=== PATIENT | female | born 1965 | race Caucasian/White ===

== ENCOUNTER 2018-06-18 17:13 | Observation (INO) ==
[2018-06-19 00:52] VITALS: RESP 20
--- NOTE | 2018-06-19 01:14 | XR ---
EXAM DATE: 06/19/2018 12:41 AM EST AGE/SEX: 52 years / Female INDICATIONS: Short of breath, actue chest pain. CLINICAL DATA: This is the patient's initial encounter. Patient reports that signs and symptoms have been present for 1 day and indicates a pain score of 0/10. MEDICAL/SURGICAL HISTORY: None. None. COMPARISON: No prior exams available for comparison. FINDINGS: A single AP view of the chest demonstrates the lungs to be symmetrically aerated without evidence of mass, infiltrate or effusion. The cardiomediastinal contours are unremarkable. Osseous structures a re intact. CONCLUSION: No acute cardiopulmonary disease Electronically signed by: Gab Dewitt MD Board Certified Radiologist 06/19/2018 1:12 AM EST
[2018-06-19] MEDS ORDERED: Aspirin 325 MG Tablet PO SCH (09:00)
--- NOTE | 2018-06-19 10:42 | P.HP ---
History of Present Illness Service: [facility] hospitalist Primary Care Physician: Les Ruelas Chief Complaint: 1-2 months left sided chest pain numbness left arm and legs History of Present Illness: This is a 52-year-old female who presents for chest pain. She states that overnight, she developed anterior chest pressure. At times it radiates to the left arm. She complains of paresthesias on the lateral aspect of the left arm when she has the pain. She also complains of intermittent paresthesias on the right leg. No weakness or numbness. No headache, neck pain or stiffness. The chest pain is pressure-like in nature. Onset gradual. No prior prior treatment. No alleviating or aggravating factors. No associated diaphoresis. She has been otherwise well recently without fevers, chills, cough, congestion, vomiting, diarrhea. No abdominal pain. No lower extremity edema, calf pain, immobility.Patient states has had this type of pain for about 1-2 months . On no medications and no other symptoms. - Diagnosis (1) Chest pain Review of Systems All other systems reviewed negative except as stated in HPI PMFSH - History History Provided By: Patient - Medical History Medical History: Medical History (Last Reviewed 06/19/18 @ 10:40 by Luis Alexandre MD) Hx of hysterectomy Hypothyroid - Surgical History Surgical History: Surgical History (Last Reviewed 06/19/18 @ 10:40 by Luis Alexandre MD) History of parathyroid surgery Hx of tubal ligation - Tobacco History Second Hand Smoke Exposure: No Smoking Status: Former smoker - Alcohol History How Often Do You Have a Drink Containing Alcohol: 2 to 4 times a month - Substance Use History Substance History: No History of Abuse Medications and Allergies Active Medications: Active Medications Aspirin (Aspirin) 325 mg PO DAILY [facility] Last Admin: 06/19/18 08:25 Dose: 325 mg Nitroglycerin (Nitro-Bid 2% Oint) 0.5 inch TOPICAL Q8H PRN PRN Reason: NEEDED FOR CHEST PAIN Allergies Allergy/AdvReac Type Severity Reaction Status Date / Time acetaminophen [From Percocet] Allergy Hallucinati Verified 06/18/18 17:22 ons oxycodone [From Percocet] Allergy Hallucinati Verified 06/18/18 17:22 ons Exam Vital signs: Vital Signs 06/19/18 00:00 06/19/18 03:59 06/19/18 08:00 Temperature 97.1 F L 97.5 F L 97.4 F L Pulse Rate 76 60 63 Respiratory Rate 20 20 20 Blood Pressure 112/62 118/80 111/70 Pulse Oximetry 94 L 99 98 06/19/18 09:00 Temperature Pulse Rate 82 Respiratory Rate Blood Pressure Pulse Oximetry Intake & Output 06/18/18 06/19/18 06/19/18 18:59 06:59 18:59 Weight 102.5 kg Other: # Voids 3 Weight On Admission 102.5 kg Narrative: GENERAL: SKIN: Warm and dry. HEAD: Normocephalic. EYES: No scleral icterus. No injection or drainage. NECK: Supple, trachea midline. No JVD or lymphadenopathy. CARDIOVASCULAR: Regular rate and rhythm without murmurs, gallops, or rubs. RESPIRATORY: Breath sounds equal bilaterally. No accessory muscle use. GASTROINTESTINAL: Abdomen soft, non-tender, nondistended. MUSCULOSKELETAL: No cyanosis, or edema. BACK: Nontender without obvious deformity. No CVA tenderness. Results - Labs Labs: Laboratory Results - last 24 hr 06/19/18 00:15 Troponin I Less than 0.02 L - Imaging Impressions Chest X-Ray 06/19/18 00:00 CONCLUSION: No acute cardiopulmonary disease Caprini VTE Risk Assessment Caprini VTE Risk Assessment: No/Low Risk (score <= 1) Caprini Risk Assessment Model: Point Value = 1 Point Value = 2 Point Value = 3 Point Value = 5 Age 41-60 Minor surgery BMI > 25 kg/m2 Swollen legs Varicose veins or History of unexplained or recurrent spontaneous Oral contraceptives or hormone replacement Sepsis (< 1 month) Serious lung disease, including pneumonia (< 1 month) Abnormal pulmonary function Acute myocardial infarction Congestive heart failure (< 1 month) History of inflammatory bowel disease Medical patient at bed rest Age 61-74 Arthroscopic surgery Major open surgery (> 45 min) Laparoscopic surgery (> 45 min) Malignancy Confined to bed (> 72 hours) Immobilizing plaster cast Central venous access Age >= 75 History of VTE Family history of VTE Factor V Leiden Prothrombin [id number] Lupus anticoagulant Anticardiolipin antibodies Elevated serum homocysteine Heparin-induced thrombocytopenia Other congenital or acquired thrombophilia Stroke (< 1 month) Elective arthroplasty Hip, pelvis, or leg fracture Acute spinal cord injury (< 1 month) Prophylaxis Regimen: Total Risk Factor Score Risk Level Prophylaxis Regimen 0-1 Low Early ambulation 2 Moderate Order ONE of the following: *Sequential Compression Device (SCD) *Heparin 5000 units SQ BID 3-4 Higher Order ONE of the following medications: *Heparin 5000 units SQ TID *Enoxaparin/Lovenox 40 mg SQ daily (WT < 150 kg, CrCl > 30 mL/min) *Enoxaparin/Lovenox 30 mg SQ daily (WT < 150 kg, CrCl > 10-29 mL/min) *Enoxaparin/Lovenox 30 mg SQ BID (WT < 150 kg, CrCl > 30 mL/min) AND/OR *Sequential Compression Device (SCD) 5 or more Highest Order ONE of the following medications: *Heparin 5000 units SQ TID (Preferred with Epidurals) *Enoxaparin/Lovenox 40 mg SQ daily (WT < 150 kg, CrCl > 30 mL/min) *Enoxaparin/Lovenox 30 mg SQ daily (WT < 150 kg, CrCl > 10-29 mL/min) *Enoxaparin/Lovenox 30 mg SQ BID (WT < 150 kg, CrCl > 30 mL/min) AND *Sequential Compression Device (SCD) Assessment and Plan - Assessment (1) Chest pain Code(s): R07.9 - Chest pain, unspecified Status: Acute Plan: will admit chest pain protocol ekg and enzymes nuclear stress test ntg paste - Plan further plan pending results tests ekg and enzymes negative so far Code Status: full Discussed Condition With: patient
[2018-06-19] MEDS ORDERED: Regadenoson Inj 0.4 MG/5 ML Syringe IV.PUSH ONE (11:24)
--- NOTE | 2018-06-19 13:18 | NM ---
EXAM DATE: 06/19/2018 12:13 PM EST AGE/SEX: 52 years / Female INDICATIONS:Angina. . Chest pain. CLINICAL DATA: This is the patient's initial encounter. Patient reports that signs and symptoms have been present for 1 day and indicates a pain score of 4/10. MEDICAL/SURGICAL HISTORY: Hypothyroidism. Hysterectomy. Tubal ligation. Parathyroidectomy. COMPARISON: No prior exams available for comparison. DOSE: 11.1 mCi Tc 99m Myoview at rest 35.0 mCi [id number] at stress 0.4 mg Lexiscan STRESS SYMPTOMS: Dyspnea, chest heaviness, abdominal cramping. EJECTION FRACTION: >70 % TECHNIQUE: The patient underwent pharmacologic stress with infusion of prescribed dose. Continuous ECG tracing was monitored during stress. Gated SPECT imaging was performed after stress and conventi onal SPECT imaging was performed at rest. The examination was performed on a SPECT/CT scanner, both attenuation and non-corrected datasets were reviewed. FINDINGS: Distribution: The maximum perfused segment at stress is in the anterolateral wall. Perfusion Study: The pattern of perfusion at stress shows some fixed diminished perfusion to the ap ex. No reversibility to suggest ischemia. Gated Study: There are intact wall motion and wall thickening without hypokinetic or dyskinetic segm ents. The ejection fraction is calculated at >70%. RISK CATEGORY: Low (<1% Annual Mortality Rate) CONCLUSION: 1. No scintigraphic findings of ischemia. 2. Fixed diminished perfusion to the apex may represent an old apical infarct or apical thinning. 3. Excellent wall motion throughout been estimated ejection fraction of greater than 70%. Electronically signed by: Jarrett Maher MD Board Certified Radiologist 06/19/2018 1:17 PM EST
--- NOTE | 2018-06-19 14:22 | ECG ---
Date Performed: 06/19/2018 Time Performed: 00:33:38 PTAGE: 52 years EKG: SINUS BRADYCARDIA POSSIBLE LEFT ATRIAL ENLARGEMENT LOW QRS VOLTAGE IN PRECORDIAL LEADS BORD LOEGARIO ECG NO PREVIOUS TRACING DOCTOR: Benjamin Dsouza Interpretating Date/Time 06/19/2018 14:21:13
--- NOTE | 2018-06-19 16:30 | P.DS ---
Date of admission: 06/18/18 23:35 Primary care physician: Les Ruelas Attending physician on discharge: Luis Aelxandre Anticipated date of discharge: 06/19/18 Brief History from admission: This is a 52-year-old female who presents for chest pain. She states that overnight, she developed anterior chest pressure. At times it radiates to the left arm. She complains of paresthesias on the lateral aspect of the left arm when she has the pain. She also complains of intermittent paresthesias on the right leg. No weakness or numbness. No headache, neck pain or stiffness. The chest pain is pressure-like in nature. Onset gradual. No prior prior treatment. No alleviating or aggravating factors. No associated diaphoresis. She has been otherwise well recently without fevers, chills, cough, congestion, vomiting, diarrhea. No abdominal pain. No lower extremity edema, calf pain, immobility.Patient states has had this type of pain for about 1-2 months . On no medications and no other symptoms. Patient update on day of discharge: stable for discharge DS: Diagnosis - Discharge Diagnosis (1) Chest pain Status: Acute DS: Summary Hospital Course: Patient admitted for chest pain with serial EKG and enzymes all were stable had N/M nick perf SPECT w/ef showed no findings of ischemia ,excellent wall motion with ef >70%,had fixed diminished perfusion to the apex may represent old apical infarct or thinning. Patient Blood pressure has been normal .Patient was started on asa 325 will continue for now ,to follow up with PCP and i did discuss with cardiology they will follow her up as out patient. I will arrange out [id number] echo as well. - Time Spent with Patient Total time spent providing and/or coordinating discharge services: Greater than 30 minutes - Quality: VTE Deep Vein Thrombosis/Pulmonary Embolism Present on Admission: No Exam Vital signs: Vital Signs 06/19/18 00:00 06/19/18 03:59 06/19/18 08:00 Temperature 97.1 F L 97.5 F L 97.4 F L Pulse Rate 76 60 63 Respiratory Rate 20 20 20 Blood Pressure 112/62 118/80 111/70 Pulse Oximetry 94 L 99 98 06/19/18 09:00 06/19/18 12:30 Temperature 96 F L Pulse Rate 82 64 Respiratory Rate 20 Blood Pressure 116/85 Pulse Oximetry 100 Intake & Output 06/18/18 06/19/18 06/19/18 18:59 06:59 18:59 Weight 102.5 kg Other: # Voids 3 Weight On Admission 102.5 kg Narrative: GENERAL: SKIN: Warm and dry. HEAD: Normocephalic. EYES: No scleral icterus. No injection or drainage. NECK: Supple, trachea midline. No JVD or lymphadenopathy. CARDIOVASCULAR: Regular rate and rhythm without murmurs, gallops, or rubs. RESPIRATORY: Breath sounds equal bilaterally. No accessory muscle use. GASTROINTESTINAL: Abdomen soft, non-tender, nondistended. MUSCULOSKELETAL: No cyanosis, or edema. BACK: Nontender without obvious deformity. No CVA tenderness. Results Procedures completed during hospitalization: N/M scan Completed studies during hospitalization: N/M scan Labs on day of discharge: Labs from last 24 hours 06/19/18 06/19/18 11:02 00:15 Troponin I Less than 0.02 L Less than 0.02 L - Impressions ITS Impressions Chest X-Ray 06/19/18 00:00 CONCLUSION: No acute cardiopulmonary disease Myocardial Perfusion Scan Nuc Med 06/19/18 10:47 CONCLUSION: 1. No scintigraphic findings of ischemia. 2. Fixed diminished perfusion to the apex may represent an old apical infarct or apical thinning. 3. Excellent wall motion throughout been estimated ejection fraction of greater than 70%. Discharge Plan - Discharge Disposition Patient Disposition: 01 Discharge Home - Discharge Condition Condition: Good - Discharge Order Discharge Orders: Discharge Order (Routine); Ordered 06/19/18 Ordered By: Luis Alexandre - Discharge Details Anticipated Discharge Date: 06/19/18 - Physicians Team Primary Care Provider: Les Ruelas Attending Provider: Luis Alexandre - Rxs /Orders / Referrals /Forms Prescriptions: New aspirin 325 mg Tablet 325 mg PO DAILY RF: 0 Referrals: Les Ruelas MD [Primary Care Provider] - See Instructions ( Please call DR SMALLS OFFICE AT YOUR CONVENIENCE TO SCHEDULE YOUR F/U APT AFTER D/C CALL ) - Discharge Instructions Additional Instructions: to follow up PCP 1 week ,will refer to cardiology and out patient 2d echo
[2018-06-19 18:00] VITALS: BP 120/87; PULSE 71; TEMP 98; O2SAT 99
--- NOTE | 2018-06-20 17:26 | ECG ---
Date Performed: 06/19/2018 Time Performed: 13:08:42 PTAGE: 52 years EKG: Sinus rhythm LOW QRS VOLTAGE IN PRECORDIAL LEADS BORDERLINE ECG PREVIOUS TRACING : 06/19/2018 00.33 Since the previous tracing, no significant change noted DOCTOR: Vasu Bee Interpretating Date/Time 06/20/2018 17:25:25
== END 2018-06-19 19:10 | disposition home or self-care (01) ==
LOC: PH3 23:25 → PHEDDLT 23:25
PROVIDERS: ADMIT Internal Medicine; ATTEND Internal Medicine
CPT/HCPCS: 70450; 71010; 71045; 71275; 74175; 78452; 80053; 82550; 83690; 83735; 84484; 85025; 85610; 85730; 93005; 93017; 99285; A9502; G0378; J2785; Q9967